=== PATIENT | female | born 1950 | race Caucasian/White ===

== ENCOUNTER → 2024-07-10 15:50 | Outpatient (REF) | payer OTHER, SELFPAY | LOC: WDC 15:50 | PROVIDERS: ATTENDING PHYSICIAN Family Medicine | DX: Z12.31 Encounter for screening mammogram for malignant neoplasm of breast (principal) | CPT/HCPCS: 77063; 77067 ==

== ENCOUNTER 2024-08-04 06:47 | Day surgery (SDC) | payer OTHER, SELFPAY ==
[2024-07-31 07:32] VITALS: BMI 34.7
[2024-07-31 08:50] LABS: Hematocrit 37.5 % (37.0-47.0); Hemoglobin 12.6 g/dL (12.0-16.0); Mean Corp Hgb Conc. 33.6 g/dL (33.0-37.0); Mean Corpuscular Hgb 31.5 pg (27.0-31.0); Mean Corpuscular Volume 93.8 fL (81.0-99.0); Mean Platelet Volume 10.1 fL (7.4-10.4); Platelet Count 211 10^3/uL (130-400); Red Cell Dist. Width 12.5 % (11.5-14.5); White Blood Cell Count 6.3 10^3/uL (4.8-10.8)
[2024-07-31 09:23] LABS: Blood Urea Nitrogen 31 mg/dl (7-17); Carbon Dioxide 26 mmol/L (22-30); Chloride 106 mmol/L (98-107); Estimated Creatinine Clearance 66 ml/min; Glucose 105 mg/dl (70-99); Potassium 4.6 mmol/L (3.5-5.1); Sodium 143 mmol/L (135-145); eGFR > 60.00
[2024-08-04] VITALS (7 sets, daily range): BP systolic 122–195; BP diastolic 65–96; BMI 34.7
[2024-08-04] MEDS: CYSVIEW KIT 100 MG INTRAVES (13:00)
[2024-08-04] MEDS: TYLENOL 1000 MG PO (13:12)
--- NOTE | 2024-08-04 15:38 | W.SUR.PREOP ---
Pre-Operative Surgical Note
-
I have examined this patient prior to the performance of the scheduled procedure.
The patient's condition is unchanged from the time of the current History and
Physical and the patient is able to undergo the scheduled procedure.
Cysview administered in SDS.
To OR for blue light cysto + bladder biopsy + fulguration
Preop sheet completed in SDS.
Surgical consent signed on chart.
D/w patient and daughter.
== END 2024-08-04 17:46 | disposition home or self-care (01) ==
LOC: SDS 06:47
PROVIDERS: ATTENDING PHYSICIAN Surgery; FAMILY PHYSICIAN Family Medicine; REFERRING PHYSICIAN Obstetrics & Gynecology
DX: N32.9 Bladder disorder, unspecified (principal)
CPT/HCPCS: 52224; C9738; 88307; 36415; 80048; 85027; 88341; 88342; 93005; A9589

== ENCOUNTER → 2024-08-28 11:53 | Outpatient (REF) | payer OTHER, SELFPAY | LOC: DHSLP 11:53 | PROVIDERS: ATTENDING PHYSICIAN Internal Medicine Critical Care Medicine; FAMILY PHYSICIAN Family Medicine | DX: G47.33 Obstructive sleep apnea (adult) (pediatric) (principal) | CPT/HCPCS: 95800 ==

== ENCOUNTER → 2025-02-07 15:17 | Outpatient (REF) | payer OTHER, SELFPAY | LOC: RAD 15:17 | PROVIDERS: ATTENDING PHYSICIAN Family Medicine | DX: I65.22 Occlusion and stenosis of left carotid artery (principal) | CPT/HCPCS: 93880 ==

== ENCOUNTER 2025-02-15 20:29 | Inpatient (IN) | payer OTHER, SELFPAY ==
[2025-02-15] VITALS (7 sets, daily range): BP systolic 117–210; BP diastolic 66–123; PULSE 88; BMI 35.1; BMI 34.2
[2025-02-15 16:13] LABS: % Basophils 0.4 % (0-2); % Eosinophils 1.1 % (0-6); % Immature Granulocytes 0.5 % (0-0.5); % Lymphocytes 9.6 % (20.5-51.1); % Monocytes 7.3 % (1.7-9.3); % Neutrophils 81.1 % (42.2-75.2); Absolute Basophils 0.1 10^3/uL (0-0.2); Absolute Eosinophils 0.1 10^3/uL (0-0.7); Absolute Immature Granulocytes 0.1 10^3/uL (0-0.05); Absolute Lymphocytes 1.2 10^3/uL (1.2-3.4); Absolute Monocytes 0.9 10^3/uL (0.1-0.6); Absolute Neutrophils 9.9 10^3/uL (1.4-6.5); Hemoglobin 13.3 g/dL (12.0-16.0); Mean Corpuscular Hgb 31.2 pg (27.0-31.0); Mean Corpuscular Volume 89.2 fL (81.0-99.0); Mean Platelet Volume 9.4 fL (7.4-10.4); Nucleated Red Blood Cells % 0 %; Platelet Count 234 10^3/uL (130-400); Red Blood Cell Count 4.26 10^6/uL (4.20-5.40); Red Cell Dist. Width 13.2 % (11.5-14.5); White Blood Cell Count 12.2 10^3/uL (4.8-10.8)
[2025-02-15 16:31] LABS: ALT (SGPT) 27 U/L (0-35); AST (SGOT) 29 U/L (14-36); Albumin 4.6 g/dl (3.5-5.0); Alkaline Phosphatase 82 U/L (38-126); Blood Urea Nitrogen 18 mg/dl (7-17); Calcium 9.6 mg/dl (8.4-10.2); Carbon Dioxide 24 mmol/L (22-30); Chloride 104 mmol/L (98-107); Glucose 108 mg/dl (70-99); Potassium 3.5 mmol/L (3.5-5.1); Sodium 139 mmol/L (135-145); Total Bilirubin 1.5 mg/dl (0.2-1.3); Total Protein 7.4 g/dl (6.3-8.2); eGFR > 60.00
[2025-02-15 16:43] LABS: Troponin I < 0.012 ng/ml
[2025-02-15 16:44] LABS: Lipase 58 U/L (23-300)
[2025-02-15] MEDS: ZOFRAN 4 MG IV (17:43)
[2025-02-15] MEDS: MORPHINE SULFATE 4 MG IV (17:43)
[2025-02-15] MEDS: NSS 1000 IV (17:44)
[2025-02-15 18:06] LABS: Lactic Acid 1.4 mmol/L (0.7-2.0)
--- NOTE | 2025-02-15 19:14 | ED.GENMED ---
History of Present Illness
General
Chief Complaint: Abdominal Pain
Source: patient and family
Time Seen by Provider: 02/15/25 17:23
History of Present Illness
History of Present Illness:
This is 74-year-old female presents with acute severe upper abdominal pain. Patient states starting earlier this morning. She woke up not feeling quite right but the pain progressed over time and now the pain is severe. The pain is in her upper
abdomen across the upper abdomen and low bit her back. She denies fevers. No sick contacts. No diarrhea. No melena. No hematochezia. No chest pain. No shortness of breath. Does still have her gallbladder. Daughter states that her pain is
severe and she is typically tolerant of pain
Past History
Past History
ED Past Medical History: HTN, Hypercholesterolemia and Other (Cataracts, melanoma, carotid artery disease)
Phy Exam
Physical Exam
Physical Exam:
CONSTITUTIONAL Patient alert and oriented to person, place and time. Moderate pain distress. Vital signs reviewed.
HEAD atraumatic, normocephalic.
EYES eyelids normal to inspection, Extraocular muscles intact, Conjunctiva normal, Sclera normal.
NECK normal range of motion, Trachea midline, no jugular venous distention.
RESPIRATORY CHEST No respiratory distress noted, Chest expansion equal, Bilateral breath sounds clear.
CARDIOVASCULAR regular rate and rhythm, Heart sounds normal.
ABDOMEN mild distention, moderate to severe tenderness in the epigastric and right upper quadrant region.
BACK normal inspection, no obvious deformities
UPPER EXTREMITY range of motion normal, Motor strength normal, no cyanosis, no edema.
LOWER EXTREMITY range of motion normal, Motor strength normal, no cyanosis, no edema.
NEURO Speech normal, No focal motor deficits, Wilber coma scale 15, Memory normal, Cranial Nerves intact to screening exam.
SKIN skin warm, dry, and normal in color.
Course
Orders/Labs/Results
Orders:
Orders
02/15/25 15:49
Electrocardiogram (*1) Urgent
Reason for Study: Hypertension, Benign
EKG- Treatment ONCE
02/15/25 16:06
Complete Blood Count/With Diff Urgent
Comprehensive Metabolic Panel Urgent
Lipase Urgent
Troponin I Urgent
02/15/25 17:34
0.9% Sodium Chloride 1000 ml [Nss] 1,000 ml IV BOLUS
Morphine Sulfate 4 mg IV NOW STA
Ondansetron Injectable [Zofran] 4 mg IV NOW STA
02/15/25 17:47
Lactic Acid Urgent
02/15/25 18:13
CT Abd/pelvis W Iv Cont Stat
Comment:
Reason For Exam: severe abd pain
02/15/25 19:12
Ampicillin/Sulbactam 3 G [Unasyn] 3 gm 0.9% Sodium Chloride 100 ml [Nss] 100 ml IV NOW
Abnormal Lab Results
02/15/25
16:06
WBC 12.2 H 10^3/uL
(4.8-10.8)
MCH 31.2 H pg
(27.0-31.0)
Abs Immat Gran (auto) 0.1 H 10^3/uL
(0-0.05)
Absolute Neuts (auto) 9.9 H 10^3/uL
(1.4-6.5)
Absolute Monos (auto) 0.9 H 10^3/uL
(0.1-0.6)
Neutrophils % 81.1 H %
(42.2-75.2)
Lymphocytes % 9.6 L %
(20.5-51.1)
BUN 18 H mg/dl
(7-17)
Glucose 108 H mg/dl
(70-99)
Total Bilirubin 1.5 H mg/dl
(0.2-1.3)
02/15/25 16:06
02/15/25 16:06
Vital Signs
Initial and Last Documented VS:
Initial Vital Signs
Temp Pulse Resp BP Pulse Ox
99.0 F 83 20 210/123 100
02/15/25 15:43 02/15/25 15:43 02/15/25 15:43 02/15/25 15:43 02/15/25 15:43
Last Documented Vital Signs
Temp Pulse Resp BP Pulse Ox
99.0 F 75 23 153/66 94
02/15/25 15:43 02/15/25 19:00 02/15/25 19:00 02/15/25 19:00 02/15/25 19:00
MDM/Problems Addressed
Differential Diagnosis Includes:
AAA, pancreatitis, cholelithiasis, cholecystitis, choledocholithiasis, enteritis, perforated viscus
MDM/Problems Addressed:
Acute cholecystitis, acute choledocholithiasis
*Radiology
Radiology exam reviewed: radiology read reviewed
*Pulse Oximetry
Patient hypoxic: no
*EKG
Interpreted by ED Provider?: Yes
Interpretation: normal
Rate: normal
Rhythm: sinus
Elmer: normal axis
Ischemia: non-specific ST changes
*Mohs Surgeon/General Dermatologist Interpretation
Rate: normal
Interpretation: normal
Rhythm: sinus
*Critical Care Note
Total Time (30-74mins, 75-104mins- exclusive of procedures): Not Applicable
Data Reviewed
Source: patient and family
Further Testing Considered But Not Given:
Considered ultrasound but concern for ruptured AAA and other diagnoses
Patient Management
Discussion with other providers: Hospitalist
Escalation/DeEscalation of care consider admission/obs:
74-year-old female presents with severe upper abdominal pain. Found to have cholelithiasis and choledocholithiasis. LFTs okay. Lipase okay. Admit
ED Attending Note
-
Portions of this chart may have been created with voice recognition software.� Occasional wrong word or��sound alike� substitutions may have occurred due to the inherent limitations of voice recognition software.
Discharge Plan
Departure
Patient Disposition: Admit
Date of Disposition: 02/15/25
Time of Disposition: 19:14
Admit to: Med/Surg
Presentation/result/management discussed w/ accepting MD/DO: Hospitalist
Discharge Problem:
Choledocholithiasis, Acute cholecystitis
Prescriptions:
No Action
aspirin 81 mg Tablet,Delayed Release (Dr/Ec)
81 mg PO DAILY
atorvastatin 20 mg Tablet
20 mg PO DAILY
levothyroxine 50 mcg Tablet
50 mcg PO DAILY
losartan 100 mg Tablet
100 mg PO DAILY
Botox 100 unit Recon Soln
1 unit IM [id number]
Patient Comments:
BLADDER INJECTION BY PHYSICIAN
Referrals:
Radha Soler DO [Family Provider] -
Interventions
Interventions:
*Risk Screen - Suicide Last Done: 02/15/25 15:43
*General Assessment Last Done: 02/15/25 15:43
*Neglect/Abuse Screening Last Done: 02/15/25 15:43
*ED- Fall Risk Assessment Last Done: 02/15/25 19:18
*ED COVID-19 Vaccine History Last Done: 02/15/25 19:18
QL-Acgzog-Wyxiybjguu Assessment Last Done: 02/15/25 18:37
Discharge Date and Time
Print Language: YAKUT
[2025-02-15] MEDS: TORADOL 15 MG IV (19:53)
[2025-02-15] MEDS: UNASYN IV (19:56)
--- NOTE | 2025-02-15 20:04 | HPS.HSE ---
Family Physician
-
Family Physician: Radha Soler
Chief Complaint
-
Abd Pain
History of Present Illness
Patient is a 74y F with PMH significant for carotid stenosis and hypothyroidism who presents to ED complaining of abdominal pain. Patient states that she felt woke this AM with mild nausea and upper abdominal discomfort. She ate nothing today
and had only sips of water and cale samina to drink. Patient states that her symptoms gradually progressed throughout the day. She completed her work day around 3:30 PM and then presented to the ED for further evaluation.
She denies any episodes of emesis. She denies any prior history of similar symptoms.
Patient notes that she has had some mild back discomfort for the past few days - she has been doing more outside work at home and attributed her symptoms to this.
She had some shaking chills here in the ED.
No other current complaints or concerns.
Medical History
Past Medical History
Past Medical History: Reports Other
Additional Past Medical History:
ASCVD / Carotid Stenosis
Hypertension
Hypothyroidism
Obesity
EVELINA
OAB
Past Surgical History: Reports Other
Additional Past Surgical History:
Bladder Biopsy (benign)
MARTIN
Cataracts
D&C x 2
D&E
Social History
Tobacco: Non-smoker
Alcohol: None
Drug: None
Family History
Family History: Other (Mother: CVA Father: CAD)
Allergies / Home Medications
Allergies reflects when Allergies were last updated in [employer].
Home Medications with original date entered in [employer]
Allergy/Medication List:
Allergies
Allergy/AdvReac Type Severity Reaction Status Date / Time
mirabegron [From Myrbetriq] Allergy migraines Verified 02/15/25 15:43
vibegron [From Gemtesa] Allergy throat Verified 02/15/25 15:43
irritation
Home Medications
aspirin 81 mg tablet,delayed release 81 mg PO DAILY 08/01/24
atorvastatin 20 mg tablet 20 mg PO DAILY 08/01/24
levothyroxine 50 mcg tablet 50 mcg PO DAILY 08/01/24
losartan 100 mg tablet 100 mg PO DAILY 08/01/24
acetaminophen 325 mg tablet (Tylenol) 650 mg PO Q6HPRN PRN mild pain 02/15/25
cartilage 40 mg-collagen II 10 mg-boron 5 mg-hyaluronate 3.3 mg tablet ([employer]) 2 tab PO DAILY 02/15/25
Review of Systems
-
History Source: Patient
A 12 point ROS was completed and negative except as noted: Yes
Constitutional: Reports Chills; Denies Fever or Fatigue
EENT: Denies Sore Throat
Respiratory: Denies Cough or Trouble Breathing
Cardiac: Denies Chest Pain or Palpitations
Abdomen/GI: Reports Abdominal Pain and Nausea; Denies Vomiting, Diarrhea, Bloody Stools or Black Stools
: Denies Dysuria, Frequency or Flank Pain
Musculoskeletal: Denies Joint Pain or Edema
Neurological: Denies Dizzy or Headache
Psych: Denies Depression or Anxiety
Physical Exam
Vital Signs
Vital Signs
Temp Pulse Resp BP Pulse Ox
99.0 F 83 21 153/66 99
02/15/25 15:43 02/15/25 19:30 02/15/25 19:30 02/15/25 19:00 02/15/25 19:30
Physical Exam
General: Other (74y F in mild distress due to abdominal pain.)
HEENT: Moist mucous membranes and PERRLA
Respiratory: Clear; No Wheezes, Rales or Rhonchi
Cardiac: S1/S2 and Regular Rhythm; No Murmur
GI: Soft, Non Distended, Normal Bowel Sounds and Other (Pos upper abdominal tenderness without guarding / rebound.)
Musculoskeletal: No Clubbing, No Cyanosis and No Edema
Neuro: AO x 3
Laboratory Results
-
02/15/25 16:06
02/15/25 16:06
Laboratory Results
Lactic Acid 1.4 mmol/L (0.7-2.0) 02/15/25 17:47
Total Bilirubin 1.5 mg/dl (0.2-1.3) H 02/15/25 16:06
AST 29 U/L (14-36) 02/15/25 16:06
ALT 27 U/L (0-35) 02/15/25 16:06
Alkaline Phosphatase 82 U/L (38-126) 02/15/25 16:06
Troponin I < 0.012 ng/ml 02/15/25 16:06
Lipase 58 U/L (23-300) 02/15/25 16:06
Impression/Plan
-
A/P: Patient is a 74y F with PMH significant for carotid stenosis, hypothyroidism and obesity who presents to ED complaining of abdominal pain.
Acute Cholecystitis
Choledocholithiasis
- Admit for further evaluation and treatment.
- CT scan in the ED shows 13mm distal CBD stone, gallbladder wall thickening and pericholecystic fluid.
- IV abx, NPO, IVF support.
- Pain control, antiemetics, etc.
- GI and Surgery evaluations for additional recommendations.
- Follow for any new / worsening symptoms.
ASCVD / Carotid Stenosis
- Stable. Patient has annual carotid sonograms done.
- Note that her US had appeared normal (< 50% stenosis) for several years now.
- Hold ASA acutely. Resume usual meds at discharge.
Benign Hypertension
- BP somewhat elevated in the ED - likely due to pain.
- Continue pain control as noted above.
- Continue usual losartan dose.
- Adjust meds as needed.
Hypothyroidism
- Stable. Continue current T4 replacement.
EVELINA on CPAP
- Stable. Continue nightly PAP therapy.
Obesity due to excess calories
- Affects all aspects of care.
- Encourage healthy diet and increased exercise with goal of weight loss.
DVT Prophylaxis: SCDs
Code Status: Full
[2025-02-15] MEDS: LR 1000 IV (21:23)
--- NOTE | 2025-02-15 21:40 | PTCARENOTE ---
Pt arrived to [facility] at 2100 from the ED on a stretcher. Pt walked from stretcher to bed w/o incident. Both of pt daughters with pt at bedside. Admission questions answered. Bed locked and in lowest position. Call herrera within reach. Pt oriented to
room. IVF hung at 60ml/hr. Care ongoing.
[2025-02-16] VITALS (11 sets, daily range): BP systolic 122–166; BP diastolic 60–85; PULSE 88
[2025-02-16] MEDS: ZOSYN 50 IV ×3 (02:29→20:09)
[2025-02-16] MEDS: SYNTHROID 50 MCG PO (06:22)
--- NOTE | 2025-02-16 07:40 | CON.GS ---
Addendum entered and electronically signed by Fly Mcgill MD 02/16/25 10:18:
SCDs and lovenox added
Addendum entered and electronically signed by Fly Mcgill MD 02/16/25 10:16:
I saw and examined the patient.
The resident's note was reviewed and I agree with the note.
Comment: Feels better, perhaps the stone has passed. Minimal ttp to RUQ. Discussed options including waiting for MRI and possible ERCP (likely Wednesday) with recommendation for CCY after, vs lap CCY today with cholangiogram. She opted for the latter.
Risks, benefits, complications and alternative discussed in detail including but not limited to pain, bleeding, infection, need for ERCP post-op, injury to intra-abdominal structures, conversion to open and she verbalized understanding and agreed to
proceed. OCTOR for RAL CCY with cholang.
Original Note:
Consultation
-
Date/Time Consultation Requested: 02/15/2025, 21:03
Date/Time Consultation Performed: 02/16/2025 07:30
Requesting Provider: Dr. Ravi Doran
Performing Provider: Dr. Fly Mcgill
Reason for Consultation: Acute Cholecystitis, Choledocholithiasis
Medical History
-
Chief Complaint: Abdominal pain, Acute Cholecystitis, Choledocholithiasis
History of Present Illness:
74-year-old female with past medical history of carotid artery stenosis, hypertension, hypothyroidism, EVELINA on CPAP, obesity, melanoma status post resection, total hysterectomy due to postmenopausal bleeding (patient does not recall underlying
etiology of bleeding) presented to the ED with abdominal pain. She woke up on 02/15/2025 with abdominal pain in the right upper quadrant that persistently got worse. The pain was consistent and severe in the right upper quadrant. It radiated to
the left side of her abdomen and states she has some lower back pain however that has been going on for the past few days. She had a normal dinner the night before, not particularly fatty and the day of she did not eat anything due to the severe
abdominal pain except for sips of water and some cale samina. She endorses nausea, but no vomiting. She endorses chills, but no fever. By the afternoon, her pain was severe enough that she came into the ED. Her last bowel movement was Wednesday,
however she typically runs a little bit constipated.
In the ED, blood pressure 210/123, afebrile, other vital stable, WBC 12.2 with left shift, bilirubin 1.5, lactic acid 1.4 lipase 58, creatinine 0.6. Abdominal pelvic CT revealed choledocholithiasis 3 mm stone in the distal common bile duct with
biliary duct dilation 13 mm. There is also mild gallbladder wall thickening suspicious for acute cholecystitis.
Patient received 1 L of fluid, ketorolac 15, morphine 4, Zofran, 1 dose of Unasyn. She was admitted on fluids and antibiotics switched to Zosyn.
Past Medical History
Past Medical History: Other (Carotid artery stenosis, ASCVD on aspirin, hypertension, hypothyroidism, EVELINA on CPAP, obesity, mild melanoma status post resection)
Past Surgical History: Other (Bladder biopsy (benign), MARTIN due to abnormal postmenopausal bleeding (over 10 years ago pt does not recall exact etiology), cataracts, D&C x 2, D&E, melanoma s/p resection on right arm)
Social History
Tobacco: Non-Smoker
Alcohol: None
Drug: None
Personal:
Living: Alone
Employment: Employed
Family History
Family History: Other (Mother CVA, father [place] and history of multiple clots, brother prostate cancer, Brother brain tumor)
Allergies / Home Medications
Allergy/AdvReac Type Severity Reaction Status Date / Time
mirabegron [From Myrbetriq] Allergy migraines Verified 02/15/25 15:43
vibegron [From Gemtesa] Allergy throat Verified 02/15/25 15:43
irritation
�Medication �Instructions �Recorded �Confirmed �Type
aspirin 81 mg tablet,delayed 81 mg PO DAILY 08/01/24 02/15/25 History
release
atorvastatin 20 mg tablet 20 mg PO DAILY 08/01/24 02/15/25 History
levothyroxine 50 mcg tablet 50 mcg PO DAILY 08/01/24 02/15/25 History
losartan 100 mg tablet 100 mg PO DAILY 08/01/24 02/15/25 History
acetaminophen 325 mg tablet 650 mg PO Q6HPRN PRN mild pain 02/15/25 02/15/25 History
(Tylenol)
cartilage 40 mg-collagen II 10 2 tab PO DAILY 02/15/25 02/15/25 History
mg-boron 5 mg-hyaluronate 3.3 mg
tablet ([email or web address])
Review of Systems
-
Constitutional: Fever and Chills
EENT: No Symptoms
Respiratory: No Symptoms
Cardiac: No Symptoms
Abdomen/GI: Abdominal Pain, Nausea, Vomiting (n) and Diarrhea (n)
Neurological: No Symptoms
A 10 point review of systems was completed, and was negative except as per HPI.
Physical Exam
Vital Signs
Temp Pulse Resp BP Pulse Ox
99.3 F 68 19 130/71 94
02/15/25 23:09 02/15/25 23:09 02/15/25 23:09 02/15/25 23:09 02/15/25 23:09
02/15/25 02/16/25 02/17/25
06:59 06:59 06:59
Actual Weight 84.85 kg
Body Mass Index (BMI) 34.2
Lab Results
WBC 12.2 10^3/uL (4.8-10.8) H 02/15/25 16:06
Hgb 13.3 g/dL (12.0-16.0) 02/15/25 16:06
Hct 38.0 % (37.0-47.0) 02/15/25 16:06
Plt Count 234 10^3/uL (130-400) 02/15/25 16:06
Abs Immat Gran (auto) 0.1 10^3/uL (0-0.05) H 02/15/25 16:06
Neutrophils % 81.1 % (42.2-75.2) H 02/15/25 16:06
Physical Exam
General: No Apparent Distress, Comfortable and Fever
Respiratory: Non Labored Respirations
Cardiac: Regular Rhythm
GI: Soft, Tender (Right upper quadrant) and Obese
Musculoskeletal: No Edema
Skin: Warm and Dry
Neuro: AO x 3
Psych: Calm
Assessment / Plan
-
74-year-old female presenting with choledocholithiasis and acute cholecystitis
Now febrile -BP initially elevated in the ED, however this morning within normal limits. Other vitals stable.
WBC 12.2 -> 8.3 with left shift, bilirubin 1.5 yesterday, CMP pending
Imaging consistent with choledocholithiasis with 3 mm stone in the distal common bile duct and dilation of the common bile duct 13 mm. Mild enlargement of gallbladder and some fat stranding suspicious for cholecystitis. Given clinical presentation
and story, acute cholecystitis likely.
As patient is feeling much better today than yesterday, patient may have already passed stone.
GI has also been consulted for ERCP, however mentioned that they may not be able to get to her until Wednesday as schedule is very packed. Discussed with patient and patient opted for surgical intervention today. Discussed robotic cholecystectomy
risks and recovery. Also discussed with daughter who is an ICU nurse at [employer] and patient and daughter are in agreement to get surgery today.
Plan:
-- NPO, IVF, Pain management
-- To OR today for robotic cholecystectomy and cholangiogram.
-- Continue Zosyn
-- DVT SCDs
--- NOTE | 2025-02-16 07:51 | W.PN.HOSP.TC ---
Today's Communication/Plan
-
Lap qiana and IOC (to look for any retained stones) with surgery team today.
Maintain NPO. Continue Zosyn.
Appreciate surgery team.
Assessment / Plan
Assessment / Plan
Physical Exam
General: Not in acute distress
HEENT: Moist mucous membranes
Respiratory: Clear to Auscultation Bilaterally
Cardiac: S1/S2 and Regular Rhythm
GI: Soft, Non Distended, Normal Bowel Sounds. RUQ tenderness.
Musculoskeletal: No Clubbing, No Cyanosis and No Edema
Neuro: AO x 3
Assessment/Plan
Patient is a 74y F with PMH significant for carotid stenosis, hypothyroidism and obesity who presents to ED complaining of abdominal pain.
Acute Cholecystitis
Choledocholithiasis
Fever -- 100.4 F -- on February 16, 2025
Leukocytosis
- CT scan in the ED showed 13mm distal CBD stone, gallbladder wall thickening and pericholecystic fluid.
- Possibly has passed a gallstone
- Continue Zosyn, NPO, IVF support.
- Pain control, antiemetics, etc.
- GI and Surgery evaluations for additional recommendations -- lap qiana and IOC (to look for any retained stones) with surgery team today
ASCVD / Carotid Stenosis
- Stable. Patient has annual carotid sonograms done.
- Note that her US had appeared normal (< 50% stenosis) for several years now.
- Hold ASA acutely. Resume usual meds at discharge.
Benign Hypertension
- BP somewhat elevated in the ED - likely due to pain -- now pain is better and blood pressure has improved
- Continue pain control as noted above.
- Continue usual losartan dose.
- Adjust meds as needed.
Hyperlipidemia?
Hypothyroidism
- Stable. Continue current T4 replacement.
EVELINA on CPAP
- Stable. Continue nightly PAP therapy.
Obesity due to excess calories
- Affects all aspects of care.
- Encourage healthy diet and increased exercise with goal of weight loss.
DVT Prophylaxis: SCDs. Lovenox.
Code Status: Full
Anticipated Discharge: 24 - 48 hours
Subjective/Interval History
-
Date of Service: February 16, 2025
Patient was seen and examined. She had a fever earlier. She reported overall her pain is better and that she is overall feeling better.
Objective Data
-
Labs:
Laboratory Results
02/16/25
07:49
WBC Pending
Hgb Pending
Hct Pending
Plt Count Pending
Sodium Pending
Potassium Pending
Chloride Pending
Carbon Dioxide Pending
BUN Pending
Creatinine Pending
Glucose Pending
Calcium Pending
Total Bilirubin Pending
AST Pending
ALT Pending
Alkaline Phosphatase Pending
Vital Signs:
Vital Signs
Temp Pulse Resp BP Pulse Ox
99.3 F 68 19 130/71 94
02/15/25 23:09 02/15/25 23:09 02/15/25 23:09 02/15/25 23:09 02/15/25 23:09
I&O
02/15/25 02/16/25 02/17/25
06:59 06:59 06:59
Intake Total 480 / 480
Balance 480 / 480
[2025-02-16] MEDS: COZAAR 100 MG PO (08:19)
[2025-02-16] MEDS: TYLENOL 650 MG PO (08:19)
--- NOTE | 2025-02-16 08:19 | CON.GI ---
Addendum entered and electronically signed by RIC Long 02/16/25 16:36:
Discussed with Dr. Mcgill. Patient s/p Lap CCY, +IOC with stone unable to pass. Contrast does enter duodenum. Saw patient in post op. Patient to be placed on clears. Continue Abx. Plan for ERCP Wednesday. Follow labs. Discussed with patient.
Addendum entered and electronically signed by Maribel Bo DO 02/16/25 10:48:
Patient seen and examined independently of RIC. I agree with her note with my additions below
Gamaliel is a 74-year-old female with history of hypertension hyperlipidemia, obesity and sleep apnea who comes in with acute onset upper abdominal pain nausea and chills currently with a temperature of 100.3, leukocytosis of 12,000. She has never had
any pain like this before. On imaging she has a dilated common bile duct at [address] scan with a very small 3 mm calculus in the distal common bile duct with mild gallbladder wall thickening suggestive of cholecystitis. Total bilirubin is
1.5, ALT 27, AST 29, alkaline phosphatase 82. Currently she is pain-free not requiring pain medications. No significant alcohol, lipase normal at 58, CT scan reviewed, discussed with Dr. Mcgill. Patient will go to the OR today and get an IOC to
look for any retained stones. Based on her clinical picture likely passed the stone. Will await IOC to determine if patient needs an ERCP. She is currently appropriately on antibiotics with Zosyn.
On physical exam she has some mild tenderness in the right upper quadrant otherwise benign exam.
Plan: Surgery to take patient to the OR for cholecystectomy with IOC and will call us if the IOC is positive for retained stone
Discussed with surgery
Original Note:
Consultation
-
Date/Time Consultation Requested: 02/15/25 043
Date/Time Consultation Performed: 02/16/25 3322
Requesting Provider: Dr. Doran
Performing Provider: Dr. Bo/RIC Sims
Reason for Consultation: cbd stone
Medical History
Chief Complaint / HPI
Chief Complaint: abd pain
History of Present Illness:
74-year-old female with past medical history of carotid stenosis, hypertension, hyperlipidemia, hypothyroidism and obstructive sleep apnea on CPAP presents to the emergency room with 1 day history of upper abdominal pain, nausea, chills.Had
temperature here, Tmax 100.3. Leukocytosis of 12.2. Total bilirubin 1.5 that was not fractionate, AST 29, ALT 27, alk phos 82. CT abdomen and pelvis with IV contrast that showed mild intrahepatic ductal dilatation with a distended, bile duct
measuring 13 mm. Distal CBD there is a 3 mm calculus. Mild gallbladder wall thickening with suggestive of cholecystitis. We are asked to evaluate for the same. The patient states that she was working she started having upper abdominal pain.
This first was dull then became sharper and sharper throughout the day. This then localized to the right upper quadrant with dull pain in her back. She had nausea without any vomiting. Chills. She came to the emergency room for further
evaluation. She has had unchanged pain. She does not smoke. She does not drink any alcohol. She takes aspirin 81 mg daily. No other NSAIDs. We are waiting current labs from this a.m. She was placed on Zosyn last evening. Surgical evaluation
pending.
Past Medical History
Past Medical History: Other (Carotid stenosis, hypertension, hyperlipidemia, hypothyroidism, obstructive sleep apnea)
Past Surgical History: Gynecological (Hysterectomy)
Social History
Tobacco: Non-Smoker
Alcohol: None
Drug: None
Employment: Employed
Family History
Family History: Other (No family history of gastrointestinal malignancy or IBD)
Allergies / Home Medications
Allergy/AdvReac Type Severity Reaction Status Date / Time
mirabegron [From Myrbetriq] Allergy migraines Verified 02/15/25 15:43
vibegron [From Gemtesa] Allergy throat Verified 02/15/25 15:43
irritation
�Medication �Instructions �Recorded
aspirin 81 mg tablet,delayed 81 mg PO DAILY 08/01/24
release
atorvastatin 20 mg tablet 20 mg PO DAILY 08/01/24
levothyroxine 50 mcg tablet 50 mcg PO DAILY 08/01/24
losartan 100 mg tablet 100 mg PO DAILY 08/01/24
acetaminophen 325 mg tablet 650 mg PO Q6HPRN PRN mild pain 02/15/25
(Tylenol)
cartilage 40 mg-collagen II 10 2 tab PO DAILY 02/15/25
mg-boron 5 mg-hyaluronate 3.3 mg
tablet ([email or web address])
Review of Systems
-
All other systems: A 12 pt ROS was Negative except as stated above in HPI
Vital Signs
Temp Pulse Resp BP Pulse Ox
100.4 F H 76 16 137/63 94
02/16/25 07:55 02/16/25 07:55 02/16/25 07:55 02/16/25 07:55 02/16/25 07:55
Physical Exam
Exam
General: No Apparent Distress
HEENT: Anicteric
Respiratory: Clear
Cardiac: Regular Rhythm
GI: Soft, Non Distended, Normal Bowel Sounds and Tender (Right upper quadrant discomfort on palpation)
Skin: Warm and Dry
Neuro: AO x 3
Psych: Calm
Results
WBC 12.2 10^3/uL (4.8-10.8) H 02/15/25 16:06
Hgb 13.3 g/dL (12.0-16.0) 02/15/25 16:06
Hct 38.0 % (37.0-47.0) 02/15/25 16:06
MCV 89.2 fL (81.0-99.0) 02/15/25 16:06
Plt Count 234 10^3/uL (130-400) 02/15/25 16:06
Absolute Neuts (auto) 9.9 10^3/uL (1.4-6.5) H 02/15/25 16:06
Sodium 139 mmol/L (135-145) 02/15/25 16:06
Potassium 3.5 mmol/L (3.5-5.1) 02/15/25 16:06
Chloride 104 mmol/L (98-107) 02/15/25 16:06
Carbon Dioxide 24 mmol/L (22-30) 02/15/25 16:06
BUN 18 mg/dl (7-17) H 02/15/25 16:06
Creatinine 0.6 mg/dL (0.6-1.0) 02/15/25 16:06
Calcium 9.6 mg/dl (8.4-10.2) 02/15/25 16:06
Total Bilirubin 1.5 mg/dl (0.2-1.3) H 02/15/25 16:06
AST 29 U/L (14-36) 02/15/25 16:06
ALT 27 U/L (0-35) 02/15/25 16:06
Alkaline Phosphatase 82 U/L (38-126) 02/15/25 16:06
Lipase 58 U/L (23-300) 02/15/25 16:06
Diagnostic Image Results:
CT abdomen pelvis with IV contrast:
Choledocholithiasis (possible distal 3 mm CBD stone) with biliary ductal dilatation. Findings suspicious for acute cholecystitis. Possible subtle gallstones.
Prior GI Procedures:
EGD: Never
Colonoscopy: Colonoscopy greater than 20 years ago at [facility]. Negative per patient report
Patient states that she had a negative Cologuard 1 year ago with PCP
Assessment / Plan
-
74-year-old female with past medical history of carotid stenosis, hypertension, hyperlipidemia, hypothyroidism and obstructive sleep apnea on CPAP presents to the emergency room with 1 day history of upper abdominal pain, nausea, chills.Had
temperature here, Tmax 100.3. Leukocytosis of 12.2. Total bilirubin 1.5 that was not fractionate, AST 29, ALT 27, alk phos 82. CT abdomen and pelvis with IV contrast that showed mild intrahepatic ductal dilatation with a distended, bile duct
measuring 13 mm. Distal CBD there is a 3 mm calculus. Mild gallbladder wall thickening with suggestive of cholecystitis. We are asked to evaluate for the same. Patient with persistent pain and fever. Awaiting labs this am.
Impression:
Cholecystitis with possible 3 mm distal CBD stone
Fever
Plan:
-Continue Abx
-Surgical consult pending
-Await am labs
-Keep NPO, IVF
-Trend CBC, LFTs
-Will discuss CT findings will Dr. Hernandes.
-Further recommendations to be forthcoming
-
-
Thank you for consultation and allowing me to participate in the patient's care. Please call the instructional technology coordinator GI physician during the after hours with any questions or concerns.
[2025-02-16 09:21] LABS: Hemoglobin 11.1 g/dL (12.0-16.0); Mean Corp Hgb Conc. 34.7 g/dL (33.0-37.0); Mean Corpuscular Hgb 31.3 pg (27.0-31.0); Mean Corpuscular Volume 90.1 fL (81.0-99.0); Mean Platelet Volume 10.2 fL (7.4-10.4); Platelet Count 171 10^3/uL (130-400); Red Blood Cell Count 3.55 10^6/uL (4.20-5.40); Red Cell Dist. Width 13.3 % (11.5-14.5); White Blood Cell Count 8.3 10^3/uL (4.8-10.8)
--- NOTE | 2025-02-16 10:52 | CM ---
Reviewed the chart notes and spoke with the patient at the bedside. Patient anticipates going to the OR at some point today. The patient resides alone in a two story home with two steps to enter. The patient reports only DME is a CPAP machine.
The patient reports no VN or SNF in the past. The patient confirmed [facility] choice [facility]. CM continues to be available to patient/family and is monitoring medical plan for needs at discharge.
Plan: Discharge to home when medically stable.
[2025-02-16 11:00] LABS: ALT (SGPT) 40 U/L (0-35); AST (SGOT) 44 U/L (14-36); Albumin 3.5 g/dl (3.5-5.0); Alkaline Phosphatase 75 U/L (38-126); Blood Urea Nitrogen 18 mg/dl (7-17); Calcium 8.5 mg/dl (8.4-10.2); Carbon Dioxide 24 mmol/L (22-30); Chloride 106 mmol/L (98-107); Direct Bilirubin 0.2 mg/dl (0.0-0.4); Estimated Creatinine Clearance 73 ml/min; Glucose 105 mg/dl (70-99); Potassium 3.7 mmol/L (3.5-5.1); Sodium 138 mmol/L (135-145); Total Bilirubin 2.9 mg/dl (0.2-1.3); Total Protein 5.9 g/dl (6.3-8.2); eGFR > 60.00
[2025-02-16] MEDS: LOVENOX 40 MG SC (11:10)
--- NOTE | 2025-02-16 15:57 | W.IMMPOSTOP ---
Surgical Immed Post Op Note
-
Primary Surgeon: Artem
Assisting: Valery CID
Pre-op Diagnosis: Acute calculous cholecystitis, choledocholithiasis
Post-op Diagnosis: Same
Procedure Performed: Robot assisted laparoscopic cholecystectomy with cholangiogram
Anesthesia Type: GETA
Specimen / Cultures: Gallbladder
Estimated Blood Loss: 30cc
Complications: None immediate
Operative Findings: Inflamed hydropic gallbladder with thickened wall, challenging to thread cholangiogram catheter but managed to backfill gallbladder in order to image the duct, duodenum did opacify, large stone in distal common duct identified.
Daughter Tonie updated
GI updated, will need ERCP
--- NOTE | 2025-02-16 15:59 | OR.RPT ---
Operative Report
Operative Report
Primary Surgeon: Artem
Assisting: Valery CID
Pre-op Diagnosis: Acute calculous cholecystitis, choledocholithiasis
Post-op Diagnosis: Same
Procedure Performed: Robot assisted laparoscopic cholecystectomy with cholangiogram
Anesthesia Type: GETA
Specimen / Cultures: Gallbladder
Estimated Blood Loss: 30cc
Complications: None immediate
Operative Findings: Inflamed hydropic gallbladder with thickened wall, challenging to thread cholangiogram catheter but managed to backfill gallbladder in order to image the duct, duodenum did opacify, large stone in distal common duct identified.
Date of Surgery:� 02/16/25
Indications: This 74F developed acute calculous cholecystitis. Lab work showed elevated liver enzymes. Imaging showed ductal dilation and choledocholithiasis with suspected 3mm stone in distal common duct. Laparoscopic cholecystectomy with
cholangiogram with robotic assist was elected.
Description of procedure: The patient was placed on the operating table in the supine position. General anesthesia was induced. A time-out was completed verifying correct patient, procedure, site, positioning, and special equipment prior to
beginning this procedure. An orogastric tube was placed. The abdomen was prepped and draped in the usual sterile fashion. A stab incision was made in left upper quadrant and the Veress needle was inserted. Proper position was confirmed by aspiration
and saline meniscus test. The abdomen was insufflated with carbon dioxide to a pressure of 12mmHg. The patient tolerated insufflation well.
A 8mm trocar was then inserted above the umbilicus. The laparoscope was inserted and the abdomen inspected. No injuries from initial trocar placement or Veress needle insertion were noted. Additional 8mm trocars were then inserted in the following
locations: two in the right lower quadrant and to the left of the umbilicus and just above. The abdomen was inspected and no abnormalities were found. The table was placed in the reverse Trendelenburg position with the right side up. The
gallbladder was notable inflamed with a thickened hydropic wall. The dome of the gallbladder was grasped with an atraumatic grasper and retracted over the dome of the liver. The infundibulum was then grasped with an atraumatic grasper and retracted
toward the right lower quadrant. This maneuver exposed Calot�s triangle. The thickened edematous peritoneum overlying the gallbladder infundibulum was then incised and the cystic duct and cystic artery identified and circumferentially dissected so
that a clear view of the liver was achieved through a window between the cystic duct an cystic artery. At this time, the only two structures going into the gallbladder were the cystic artery and cystic duct.
A tom was made in the cystic duct and a cholangiogram catheter threaded through the abdominal wall and into the cystic duct and secured with 3-0 silk suture. Only a few mm of the catheter was able to be threaded, the cystic duct was milked but no
stoned retrieved, ultimately the catheter was secured in fairly shallow position. A cholangiogram was obtained that showed backfill of the gallbladder, good flow of bile into the duodenum, limited opacification of biliary tree with a large filling
defect in the distal common duct. The catheter was removed.
The cystic duct was then doubly clipped and divided. The cystic artery was controlled with bipolar and divided. The gallbladder was then dissected from its peritoneal attachments by electrocautery. The gallbladder was removed using an endoscopic
retrieval bag placed through the umbilical port. The gallbladder was passed off the table as a specimen. The gallbladder fossa was irrigated with copious sterile saline. There was no evidence of bleeding from the gallbladder fossa or cystic artery
or leakage of the bile from the cystic duct stump. The umbilical trocar site was closed at the fascial level with 2-0 PDS. Secondary trocars were removed under direct vision and noted to be hemostatic. The abdomen was allowed to collapse. The skin
was closed with subcuticular sutures of 4-0 monocryl and topical skin adhesive. The orogastric tube was removed.
The patient tolerated the procedure well and was taken to the postanesthesia care unit in stable condition.
The assistance of Valery CID was required due to the complexity of the procedure. During the procedure she assisted with retraction, resection, and closure of the wound.
[2025-02-16] MEDS: ZOSYN IV (17:09)
[2025-02-16] MEDS: LR 1000 IV (18:03)
[2025-02-16] MEDS: TORADOL 15 MG IV (20:10)
[2025-02-17] MEDS: ZOSYN 50 IV ×3 (01:45→13:44)
[2025-02-17] MEDS: TORADOL 15 MG IV ×2 (02:16→09:37)
[2025-02-17 03:05] VITALS: BP 139/73
[2025-02-17] MEDS: SYNTHROID 50 MCG PO (05:21)
[2025-02-17 07:00] VITALS: BP 153/77
[2025-02-17 08:20] LABS: Hematocrit 32.1 % (37.0-47.0); Hemoglobin 11.2 g/dL (12.0-16.0); Mean Corp Hgb Conc. 34.9 g/dL (33.0-37.0); Mean Corpuscular Hgb 31.4 pg (27.0-31.0); Mean Corpuscular Volume 89.9 fL (81.0-99.0); Mean Platelet Volume 10.9 fL (7.4-10.4); Platelet Count 176 10^3/uL (130-400); Red Blood Cell Count 3.57 10^6/uL (4.20-5.40); Red Cell Dist. Width 13.1 % (11.5-14.5); White Blood Cell Count 9.9 10^3/uL (4.8-10.8)
[2025-02-17] MEDS: COZAAR 100 MG PO (09:37)
[2025-02-17 10:12] LABS: ALT (SGPT) 92 U/L (0-35); AST (SGOT) 97 U/L (14-36); Albumin 3.8 g/dl (3.5-5.0); Alkaline Phosphatase 80 U/L (38-126); Blood Urea Nitrogen 16 mg/dl (7-17); Calcium 9.2 mg/dl (8.4-10.2); Carbon Dioxide 26 mmol/L (22-30); Chloride 106 mmol/L (98-107); Direct Bilirubin 0.3 mg/dl (0.0-0.4); Estimated Creatinine Clearance 73 ml/min; Glucose 140 mg/dl (70-99); Potassium 3.9 mmol/L (3.5-5.1); Sodium 140 mmol/L (135-145); Total Bilirubin 3.1 mg/dl (0.2-1.3); Total Protein 6.7 g/dl (6.3-8.2); eGFR > 60.00
--- NOTE | 2025-02-17 11:03 | W.PN.HOSP.TC ---
Today's Communication/Plan
-
f/w GI recommendations
c/w IV Abx
Assessment / Plan
Assessment / Plan
Physical Exam
General: Not in acute distress
HEENT: Moist mucous membranes
Respiratory: Clear to Auscultation Bilaterally
Cardiac: S1/S2 and Regular Rhythm
GI: Soft, Non Distended, clean surgery sites.
Musculoskeletal: No Clubbing, No Cyanosis and No Edema
Neuro: AO x 3, she followed commands
Psych: calm
Assessment/Plan
Patient is a 74y F with PMH significant for carotid stenosis, hypothyroidism and obesity who presents to ED complaining of abdominal pain.
# Acute calculous cholecystitis, choledocholithiasis
Sepsis POA with leukocytosis, Fever -- 100.4 F -- on February 16, 2025. Normal lactic acid. Now resolved.
Leukocytosis
- CT scan in the ED showed 13mm distal CBD stone, gallbladder wall thickening and pericholecystic fluid.
- s/p Robot assisted laparoscopic cholecystectomy with cholangiogram by Dr Mcgill 02/16 revealing a large filling defect in the distal common duct, for ERCP by GI
- Continue Zosyn,
- Pain control, antiemetics, etc.
- GI and Surgery help appreciated
ASCVD / Carotid Stenosis
- Stable. Patient has annual carotid sonograms done.
- Note that her US had appeared normal (< 50% stenosis) for several years now.
- Hold ASA acutely. Resume usual meds at discharge.
Benign Hypertension
HTN urgency on 02/15, resolved, due to pain
- Continue pain control as noted above.
- Continue usual losartan dose.
Hyperlipidemia
Hypothyroidism
- Stable. Continue current T4 replacement.
EVELINA on CPAP
- Stable. Continue nightly PAP therapy.
Obesity due to excess calories
- Affects all aspects of care.
- Encourage healthy diet and increased exercise with goal of weight loss.
DVT Prophylaxis: SCDs. Lovenox. Hold Wednesday PM SQ Lovenox pending GI procedure on Wednesday
Code Status: Full
Total time spent to see the patient, examine the patient, review data and lab result, discuss treatment plan with the patient, nursing staff around 55 minutes
Anticipated Discharge: 24 - 48 hours
Subjective/Interval History
-
Date of Service: February 17, 2025
No abd pain
No nausea
No chest pain
Objective Data
-
Labs:
Laboratory Results
02/17/25 02/17/25
06:34 09:38
WBC 9.9
Hgb 11.2 L
Hct 32.1 L
Plt Count 176
Sodium Cancelled 140
Potassium Cancelled 3.9
Chloride Cancelled 106
Carbon Dioxide Cancelled 26
BUN Cancelled 16
Creatinine Cancelled 0.7
Glucose Cancelled 140 H
Calcium Cancelled 9.2
Total Bilirubin Cancelled 3.1 H
AST Cancelled 97 H
ALT Cancelled 92 H
Alkaline Phosphatase Cancelled 80
Vital Signs:
Vital Signs
Temp Pulse Resp BP Pulse Ox
97.9 F 67 16 139/73 97
02/17/25 07:00 02/17/25 07:00 02/17/25 07:00 02/17/25 09:37 02/17/25 10:00
I&O
02/16/25 02/17/25 02/18/25
06:59 06:59 06:59
Intake Total 480 / 480 1190 / 1190
Balance 480 / 480 1190 / 1190
[2025-02-17 11:36] VITALS: BP 136/60
--- NOTE | 2025-02-17 12:39 | W.PN.GS2 ---
Addendum entered and electronically signed by Fly Mcgill MD 02/17/25 14:22:
I saw and examined the patient.
The Materials Scientist's note was reviewed and I agree with the note.
Comment: Doing well post-op. Belly soft, approp ttp, incisions cdi. Discussed ductal stone that will require ERCP, timing per GI. OK for CLD in the meantime. Pls call with ?s
Original Note:
Today's Communication / Plan
-
Clears
Assessment / Plan
-
74 yo female presenting with ACC now POD #1 robotic cholecystectomy with IOC demonstrating choledocholithiasis
LFT's trending up
No Leukocytosis
--Gastroenterology following for ERCP
--Clear liquids until ERCP can be preformed then ADAT as per GI
--Analgesics as needed
--Trend labs
--ABX as per primary team
--Lovenox and SCDs for VTE ppx
Subjective Data
-
Date of Service: February 17, 2025
Patient seen and examined at bedside with Dr. Mcgill. Denies n/v. Incisional soreness, worse with movement.
Objective Data
-
Intake and Output
02/16/25 02/17/25 02/18/25
06:59 06:59 06:59
Intake Total 480 / 480 1190 / 1190
Balance 480 / 480 1190 / 1190
Intake:
Oral fluids 480 / 480 480 / 480
IV fluids (Total) 660 / 660
Normosol 300 / 300
IV piggybacks 50 / 50
Other:
Number of approximated LARGE 1
amounts of urine
How many times incontinent 1
MODERATE amount urine
Vital Signs
Temp Pulse Resp BP Pulse Ox
98.4 F 73 18 136/60 96
02/17/25 11:36 02/17/25 11:36 02/17/25 11:36 02/17/25 11:36 02/17/25 11:36
Lab Results
02/17/25 06:34
02/17/25 09:38
Calcium 9.2 mg/dl (8.4-10.2) 02/17/25 09:38
Total Bilirubin 3.1 mg/dl (0.2-1.3) H 02/17/25 09:38
Direct Bilirubin 0.3 mg/dl (0.0-0.4) 02/17/25 09:38
AST 97 U/L (14-36) H 02/17/25 09:38
ALT 92 U/L (0-35) H 02/17/25 09:38
Alkaline Phosphatase 80 U/L (38-126) 02/17/25 09:38
Total Protein 6.7 g/dl (6.3-8.2) 02/17/25 09:38
Albumin 3.8 g/dl (3.5-5.0) 02/17/25 09:38
Physical Exam
-
NAD
ABD soft, mild RUQ/incisional tenderness, ND
Mild jaundice
Incisions with intact glue, no erythema
[2025-02-17 15:00] VITALS: BP 137/66
--- NOTE | 2025-02-17 15:28 | PTCARENOTE ---
pt right side of face is just flushed down to her neck. No rash anywhere else, no difficult breathing. Non symptomatic or irritating. Just finished Zosyn, but has had at least 4-[address] Husain orders to HOLD Zosyn and Toradol and see if
resolves.
--- NOTE | 2025-02-17 15:44 | W.PN.GI.CBS2 ---
Today's Communication / Plan
-
-- full liquids, ERCP Wednesday, LFTs tomorrow
Assessment / Plan
-
74-year-old female with past medical history of carotid stenosis, hypertension, hyperlipidemia, hypothyroidism and obstructive sleep apnea on CPAP presents to the emergency room with 1 day history of upper abdominal pain, nausea, chills.Had
temperature here, Tmax 100.3. Leukocytosis of 12.2. Total bilirubin 1.5 that was not fractionate, AST 29, ALT 27, alk phos 82. CT abdomen and pelvis with IV contrast that showed mild intrahepatic ductal dilatation with a distended, bile duct
measuring 13 mm. Distal CBD there is a 3 mm calculus. Mild gallbladder wall thickening with suggestive of cholecystitis. We are asked to evaluate for the same. Patient with persistent pain and fever. Awaiting labs this am.
Impression:
Cholecystitis with possible 3 mm distal CBD stone
Fever
02/16/2025 cholecystectomy with positive IOC -contrast did flow into the duodenum and therefore not completely obstructed
02/17/2025: No leukocytosis, continuing Zosyn, stable total bilirubin 3.1, slight bump in ALT and AST. Normal alkaline phosphatase of 80
-- Check LFTs tomorrow, for liquid diet, ERCP scheduled for Wednesday
Subjective
Subjective
Date of Service: February 17, 2025
Patient appropriately sore at incision sites but no nausea vomiting and now passing flatus. Her daughter at bedside who is an ICU nurse was concerned about some facial flushing after her Zosyn dose
Objective
Data Reviewed
Laboratory Data:
Laboratory Results
02/17/25 06:34
02/17/25 09:38
Laboratory Results
Total Bilirubin 3.1 mg/dl (0.2-1.3) H 02/17/25 09:38
AST 97 U/L (14-36) H 02/17/25 09:38
ALT 92 U/L (0-35) H 02/17/25 09:38
Alkaline Phosphatase 80 U/L (38-126) 02/17/25 09:38
Lipase 58 U/L (23-300) 02/15/25 16:06
Vital Signs and I&O:
Vital Signs
Temp Pulse Resp BP Pulse Ox
98 F 75 20 137/66 100
02/17/25 15:00 02/17/25 15:00 02/17/25 15:00 02/17/25 15:00 02/17/25 15:00
I&O
02/16/25 02/17/25 02/18/25
06:59 06:59 06:59
Intake Total 480 / 480 1190 / 1190
Balance 480 / 480 1190 / 1190
Physical Exam
Physical Exam
HEENT: Anicteric (Mildly icteric)
Cardiology: Normal Sinus Rhythm
Pulmonary: Clear
GI: Soft and Tender (Appropriately tender. Fresh surgical incision sites)
Extremities: No Edema
Neuro: Non Focal
[2025-02-17] MEDS: LOVENOX 40 MG SC (17:35)
[2025-02-17 23:06] VITALS: BP 156/78
[2025-02-18] MEDS: SYNTHROID 50 MCG PO (06:06)
[2025-02-18] MEDS: TYLENOL 650 MG PO (06:09)
[2025-02-18 06:11] LABS: Hematocrit 29.2 % (37.0-47.0); Hemoglobin 10.2 g/dL (12.0-16.0); Mean Corp Hgb Conc. 34.9 g/dL (33.0-37.0); Mean Corpuscular Hgb 31.6 pg (27.0-31.0); Mean Corpuscular Volume 90.4 fL (81.0-99.0); Mean Platelet Volume 10.4 fL (7.4-10.4); Platelet Count 152 10^3/uL (130-400); Red Blood Cell Count 3.23 10^6/uL (4.20-5.40); Red Cell Dist. Width 13.4 % (11.5-14.5); White Blood Cell Count 9.4 10^3/uL (4.8-10.8)
[2025-02-18 06:48] LABS: ALT (SGPT) 96 U/L (0-35); AST (SGOT) 79 U/L (14-36); Albumin 3.1 g/dl (3.5-5.0); Alkaline Phosphatase 75 U/L (38-126); Blood Urea Nitrogen 15 mg/dl (7-17); Calcium 8.6 mg/dl (8.4-10.2); Carbon Dioxide 27 mmol/L (22-30); Chloride 106 mmol/L (98-107); Direct Bilirubin 0.2 mg/dl (0.0-0.4); Estimated Creatinine Clearance 73 ml/min; Glucose 113 mg/dl (70-99); Potassium 3.4 mmol/L (3.5-5.1); Sodium 139 mmol/L (135-145); Total Bilirubin 2.2 mg/dl (0.2-1.3); Total Protein 5.5 g/dl (6.3-8.2); eGFR > 60.00
[2025-02-18 07:15] VITALS: BP 141/71
--- NOTE | 2025-02-18 08:59 | W.PN.HOSP.TC ---
Addendum entered and electronically signed by Booker Husain MD 02/18/25 16:26:
Addendum
GI requested to c/w antibiotic, can do short course of Cefdinir.
End
Original Note:
Today's Communication/Plan
-
NPO past MN
Holding Lovenox tonight
Laxative
Replace K
Assessment / Plan
Assessment / Plan
Physical Exam
General: Not in acute distress
HEENT: Moist mucous membranes
Respiratory: Clear to Auscultation Bilaterally
Cardiac: S1/S2 and Regular Rhythm
GI: Soft, Non Distended, clean surgery sites.
Musculoskeletal: No Clubbing, No Cyanosis and No Edema
Neuro: AO x 3, she followed commands
Psych: calm
Assessment/Plan
Patient is a 74y F with PMH significant for carotid stenosis, hypothyroidism and obesity who presents to ED complaining of abdominal pain.
# Acute calculous cholecystitis, choledocholithiasis
Sepsis POA with leukocytosis, Fever -- 100.4 F -- on February 16, 2025. Normal lactic acid. Now resolved.
Leukocytosis
- CT scan in the ED showed 13mm distal CBD stone, gallbladder wall thickening and pericholecystic fluid.
- s/p Robot assisted laparoscopic cholecystectomy with cholangiogram by Dr Mcgill 02/16 revealing a large filling defect in the distal common duct, for ERCP by GI
- s/p IV Zosyn for 3 days.
- Pain control, antiemetics, etc.
- GI and Surgery help appreciated
# Reported skin color change around neck ( pink) yesterday
Doubt allergic reaction
She does no need more antibiotic.
Her skin looks normal and no evidence of rash
Hypokalemia
Replace
#ASCVD / Carotid Stenosis
- Stable. Patient has annual carotid sonograms done.
- Note that her US had appeared normal (< 50% stenosis) for several years now.
- Hold ASA acutely. Resume usual meds at discharge.
#Benign Hypertension
HTN urgency on 02/15, resolved, due to pain
- Continue pain control as noted above.
- Continue usual losartan dose.
# Constipation
Reports few days no BM
Tried MiraLAX, add daily dose with one time dose Dulcolax
#Hyperlipidemia
#Hypothyroidism
- Stable. Continue current T4 replacement.
# EVELINA on CPAP
- Stable. Continue nightly PAP therapy.
# Obesity due to excess calories
- Affects all aspects of care.
- Encourage healthy diet and increased exercise with goal of weight loss.
DVT Prophylaxis: SCDs. Lovenox. Hold Wednesday PM SQ Lovenox pending GI procedure on Wednesday
Code Status: Full
Total time spent to see the patient, examine the patient, review data and lab result, discuss treatment plan with the patient, GI doctor, nursing staff around 55 minutes
Anticipated Discharge: 24 - 48 hours
Subjective/Interval History
-
Date of Service: February 18, 2025
No abdominal pain
No nausea
no skin rash or itching
Objective Data
-
Labs:
Laboratory Results
02/18/25
04:33
WBC 9.4
Hgb 10.2 L
Hct 29.2 L
Plt Count 152
Sodium 139
Potassium 3.4 L
Chloride 106
Carbon Dioxide 27
BUN 15
Creatinine 0.7
Glucose 113 H
Calcium 8.6
Total Bilirubin 2.2 H
AST 79 H
ALT 96 H
Alkaline Phosphatase 75
Vital Signs:
Vital Signs
Temp Pulse Resp BP Pulse Ox
98.6 F 68 16 141/71 95
02/18/25 07:15 02/18/25 07:15 02/18/25 07:15 02/18/25 07:15 02/18/25 07:15
I&O
02/17/25 02/18/25 02/19/25
06:59 06:59 06:59
Intake Total 1190 / 1190 300 / 300
Balance 1190 / 1190 300 / 300
[2025-02-18] MEDS: COZAAR 100 MG PO (09:18)
[2025-02-18] MEDS: MIRALAX 17 GRAMS PO (09:19)
[2025-02-18] MEDS: DULCOLAX 10 MG PO (09:19)
[2025-02-18] MEDS: KCL 20 MEQ PO (11:47)
--- NOTE | 2025-02-18 12:06 | W.PN.GI.CBS2 ---
Today's Communication / Plan
-
-- Restart antibiotics, choice per primary team as there was a questionable reaction to Zosyn but doubt significant allergy
Assessment / Plan
-
74-year-old female with past medical history of carotid stenosis, hypertension, hyperlipidemia, hypothyroidism and obstructive sleep apnea on CPAP presents to the emergency room with 1 day history of upper abdominal pain, nausea, chills.Had
temperature here, Tmax 100.3. Leukocytosis of 12.2. Total bilirubin 1.5 that was not fractionate, AST 29, ALT 27, alk phos 82. CT abdomen and pelvis with IV contrast that showed mild intrahepatic ductal dilatation with a distended, bile duct
measuring 13 mm. Distal CBD there is a 3 mm calculus. Mild gallbladder wall thickening with suggestive of cholecystitis. We are asked to evaluate for the same. Patient with persistent pain and fever. Awaiting labs this am.
Impression:
Cholecystitis with possible 3 mm distal CBD stone
Fever
02/16/2025 cholecystectomy with positive IOC -contrast did flow into the duodenum and therefore not completely obstructed
02/17/2025: No leukocytosis, continuing Zosyn, stable total bilirubin 3.1, slight bump in ALT and AST. Normal alkaline phosphatase of 80
-- Check LFTs tomorrow, for liquid diet, ERCP scheduled for Wednesday
02/18/2025 -patient needs to be back on antibiotics in the setting of choledocholithiasis
N.p.o. after midnight
Subjective
Subjective
Date of Service: February 18, 2025
Tolerating full liquids with no significant pain
Objective
Data Reviewed
Laboratory Data:
Laboratory Results
02/18/25 04:33
02/18/25 04:33
Laboratory Results
Total Bilirubin 2.2 mg/dl (0.2-1.3) H 02/18/25 04:33
AST 79 U/L (14-36) H 02/18/25 04:33
ALT 96 U/L (0-35) H 02/18/25 04:33
Alkaline Phosphatase 75 U/L (38-126) 02/18/25 04:33
Lipase 58 U/L (23-300) 02/15/25 16:06
Vital Signs and I&O:
Vital Signs
Temp Pulse Resp BP Pulse Ox
98.6 F 68 16 141/71 95
02/18/25 07:15 02/18/25 07:15 02/18/25 07:15 02/18/25 07:15 02/18/25 07:15
I&O
02/17/25 02/18/25 02/19/25
06:59 06:59 06:59
Intake Total 1190 / 1190 300 / 300
Balance 1190 / 1190 300 / 300
Physical Exam
Physical Exam
HEENT: Anicteric (Mildly icteric)
GI: Soft and Tender (Appropriately tender postprocedure)
Extremities: No Edema
Neuro: Non Focal
--- NOTE | 2025-02-18 14:06 | CM ---
Patient seen at bedside in [address] [place] [address]. Patient consult for VN at discharge. Patient confused as to why the doctor was recommending VN. Patient plan to discuss with physician, however at this time she does not believe that she will need VN. Patient
states that she will have procedure tomorrow and that she plans to go home with family support. CM will continue to follow for discharge planning needs.
Plan; home with no needs vs home with VN; pending patient choice
[2025-02-18 15:30] VITALS: BP 130/69
[2025-02-18] MEDS: OMNICEF 300 MG PO (20:11)
[2025-02-18 23:15] VITALS: BP 154/68
[2025-02-19] VITALS (10 sets, daily range): BP systolic 147–189; BP diastolic 75–93
[2025-02-19] MEDS: SYNTHROID 50 MCG PO (05:26)
--- NOTE | 2025-02-19 05:51 | PTCARENOTE ---
pt assessed for pain, pt verbalized ''I have a high tolerance for pain and do not need any pain meds''. Pt declines her CPAP.
[2025-02-19 06:53] LABS: Hematocrit 31.3 % (37.0-47.0); Hemoglobin 10.4 g/dL (12.0-16.0); Mean Corp Hgb Conc. 33.2 g/dL (33.0-37.0); Mean Corpuscular Hgb 31.2 pg (27.0-31.0); Mean Platelet Volume 10.3 fL (7.4-10.4); Platelet Count 172 10^3/uL (130-400); Red Blood Cell Count 3.33 10^6/uL (4.20-5.40); Red Cell Dist. Width 13.6 % (11.5-14.5); White Blood Cell Count 7.7 10^3/uL (4.8-10.8)
[2025-02-19 07:03] LABS: ALT (SGPT) 85 U/L (0-35); AST (SGOT) 46 U/L (14-36); Albumin 3.4 g/dl (3.5-5.0); Alkaline Phosphatase 82 U/L (38-126); Direct Bilirubin 0.2 mg/dl (0.0-0.4); Total Bilirubin 1.9 mg/dl (0.2-1.3); Total Protein 5.8 g/dl (6.3-8.2)
[2025-02-19] MEDS: MIRALAX PO (07:10)
[2025-02-19] MEDS: COZAAR 100 MG PO (07:11)
[2025-02-19] MEDS: OMNICEF 300 MG PO ×2 (07:11→19:31)
--- NOTE | 2025-02-19 08:00 | W.PN.HOSP.TC ---
Today's Communication/Plan
-
ERCP today
Assessment / Plan
Assessment / Plan
Physical Exam
General: Not in acute distress
HEENT: Moist mucous membranes
Respiratory: Clear to Auscultation Bilaterally
Cardiac: S1/S2 and Regular Rhythm
GI: Soft, Non Distended, clean surgery sites.
Musculoskeletal: No Clubbing, No Cyanosis and No Edema
Neuro: AO x 3, she followed commands
Psych: calm
Assessment/Plan
Patient is a 74y F with PMH significant for carotid stenosis, hypothyroidism and obesity who presents to ED complaining of abdominal pain.
# Acute calculous cholecystitis, choledocholithiasis
Sepsis POA with leukocytosis, Fever -- 100.4 F -- on February 16, 2025. Normal lactic acid. Now resolved.
Leukocytosis
- CT scan in the ED showed 13mm distal CBD stone, gallbladder wall thickening and pericholecystic fluid.
- s/p Robot assisted laparoscopic cholecystectomy with cholangiogram by Dr Mcgill 02/16 revealing a large filling defect in the distal common duct
- s/p IV Zosyn for 3 days.
- Pain control, antiemetics, etc.
- GI and Surgery help appreciated
- ERCP today with choledochlolithiasis
# Reported skin color change around neck ( pink) yesterday
Doubt allergic reaction
She does no need more antibiotic -- Zosyn was recently stopped
Her skin looks normal and no evidence of rash
#Hypokalemia
-Resolved
-Replace as needed
#ASCVD / Carotid Stenosis
- Stable. Patient has annual carotid sonograms done.
- Note that her US had appeared normal (< 50% stenosis) for several years now.
- Hold ASA acutely. Resume usual meds at discharge.
#Benign Hypertension
HTN urgency on 02/15, resolved, due to pain
- Continue pain control as noted above.
- Continue usual losartan dose.
# Constipation
Reports few days no BM
Tried MiraLAX, add daily dose with one time dose Dulcolax
#Hyperlipidemia
#Hypothyroidism
- Stable. Continue current T4 replacement.
# EVELINA on CPAP
- Stable. Continue nightly PAP therapy.
# Obesity due to excess calories
- Affects all aspects of care.
- Encourage healthy diet and increased exercise with goal of weight loss.
DVT Prophylaxis: SCDs. Lovenox whtn okay to resume per Dr. Hernandes of GI.
Code Status: Full
Anticipated Discharge: Within 24 hours
Subjective/Interval History
-
Date of Service: February 19, 2025
Patient was seen and examined. She denied any new symptoms or complaints.
Objective Data
-
Labs:
Laboratory Results
02/19/25
05:39
WBC 7.7
Hgb 10.4 L
Hct 31.3 L
Plt Count 172
Total Bilirubin 1.9 H
AST 46 H
ALT 85 H
Alkaline Phosphatase 82
Vital Signs:
Vital Signs
Temp Pulse Resp BP Pulse Ox
99.8 F 74 20 147/79 92
02/18/25 23:15 02/19/25 07:11 02/18/25 23:15 02/19/25 07:11 02/18/25 23:15
I&O
02/18/25 02/19/25 02/20/25
06:59 06:59 06:59
Intake Total 300 / 300 1140 / 1140
Balance 300 / 300 1140 / 1140
[2025-02-19 08:34] LABS: Blood Urea Nitrogen 10 mg/dl (7-17); Calcium 8.7 mg/dl (8.4-10.2); Carbon Dioxide 27 mmol/L (22-30); Chloride 106 mmol/L (98-107); Estimated Creatinine Clearance 73 ml/min; Glucose 95 mg/dl (70-99); Sodium 141 mmol/L (135-145); eGFR > 60.00
--- NOTE | 2025-02-19 12:15 | CM ---
CM following re: discharge planning.
Reviewed pt's chart, met with pt.
Per chart review, pt for ERCP today.
Pt reports she resides alone in a two story home and pt is independent in all areas [employer]. has C-Pap machine. Pt stated she will not need any after care VN services.
D/C plan: home with no after care VN needs.
CM will follow with discharge plan updates as needed.
[2025-02-19] MEDS: DILAUDID 0.5 MG IV (16:21)
[2025-02-19] MEDS: ZOFRAN 4 MG IV (16:22)
[2025-02-19] MEDS: APRESOLINE 5 MG IV (16:24)
[2025-02-20 03:15] VITALS: BP 168/89
[2025-02-20] MEDS: SYNTHROID 50 MCG PO (05:04)
[2025-02-20] MEDS: APRESOLINE 5 MG IV (05:10)
[2025-02-20 07:09] VITALS: BP 125/67
[2025-02-20 07:10] LABS: Hemoglobin 11.4 g/dL (12.0-16.0); Mean Corp Hgb Conc. 35.6 g/dL (33.0-37.0); Mean Corpuscular Hgb 31.3 pg (27.0-31.0); Mean Corpuscular Volume 87.9 fL (81.0-99.0); Mean Platelet Volume 10.3 fL (7.4-10.4); Platelet Count 214 10^3/uL (130-400); Red Blood Cell Count 3.64 10^6/uL (4.20-5.40); Red Cell Dist. Width 12.8 % (11.5-14.5); White Blood Cell Count 9.5 10^3/uL (4.8-10.8)
[2025-02-20] MEDS: COZAAR 100 MG PO (07:45)
[2025-02-20] MEDS: MIRALAX PO ×2 (07:45→07:46)
[2025-02-20] MEDS: OMNICEF 300 MG PO (07:46)
[2025-02-20 10:14] LABS: ALT (SGPT) 435 U/L (0-35); AST (SGOT) 503 U/L (14-36); Albumin 3.5 g/dl (3.5-5.0); Alkaline Phosphatase 314 U/L (38-126); Blood Urea Nitrogen 15 mg/dl (7-17); Calcium 9.6 mg/dl (8.4-10.2); Carbon Dioxide 27 mmol/L (22-30); Chloride 104 mmol/L (98-107); Direct Bilirubin 1.5 mg/dl (0.0-0.4); Estimated Creatinine Clearance 86 ml/min; Glucose 156 mg/dl (70-99); Potassium 3.8 mmol/L (3.5-5.1); Sodium 140 mmol/L (135-145); Total Bilirubin 3.9 mg/dl (0.2-1.3); Total Protein 6.3 g/dl (6.3-8.2); eGFR > 60.00
--- NOTE | 2025-02-20 10:51 | CM ---
Reviewed the chart notes and spoke with the patient at the bedside. IMM reviewed. Patient anticipates being discharged to home with no additional needs. Patient's daughter will provide transportation on day of discharge. CM continues to be
available to patient/family and is monitoring medical plan for needs at discharge.
Plan: Discharge to home when medically stable. No needs anticipated.
[2025-02-20 11:08] VITALS: BP 168/85
--- NOTE | 2025-02-20 13:18 | W.PN.GI.CBS2 ---
Today's Communication / Plan
-
Low-fat diet
Repeat LFT in a.m.
Assessment / Plan
-
74-year-old female with past medical history of carotid stenosis, hypertension, hyperlipidemia, hypothyroidism and obstructive sleep apnea on CPAP presents to the emergency room with 1 day history of upper abdominal pain, nausea, chills.Had
temperature here, Tmax 100.3. Leukocytosis of 12.2. Total bilirubin 1.5 that was not fractionate, AST 29, ALT 27, alk phos 82. CT abdomen and pelvis with IV contrast that showed mild intrahepatic ductal dilatation with a distended, bile duct
measuring 13 mm. Distal CBD there is a 3 mm calculus. Mild gallbladder wall thickening with suggestive of cholecystitis. We are asked to evaluate for the same. Patient with persistent pain and fever. Awaiting labs this am.
Impression:
Cholecystitis with possible 3 mm distal CBD stone
Fever
02/16/2025 cholecystectomy with positive IOC -contrast did flow into the duodenum and therefore not completely obstructed
02/17/2025: No leukocytosis, continuing Zosyn, stable total bilirubin 3.1, slight bump in ALT and AST. Normal alkaline phosphatase of 80
-- Check LFTs tomorrow, for liquid diet, ERCP scheduled for Wednesday
ERCP with 02/19/2025
Impression: - The major papilla appeared to be flat.
- A filling defect consistent with a stone was seen on
the cholangiogram.
- The common bile duct was mildly dilated.
- Choledocholithiasis was found. Complete removal was
accomplished by biliary sphincterotomy and balloon
extraction.
plan
This AM labs showing AST 503/ALT 435/alkaline phosphatase 314/total bilirubin 3.9 . Likely papillary edema following ERCP. Patient is asymptomatic.
ok to advance to low-fat diet
discussed with Dr. Hernandes. Repeat labs tomorrow AM. If downtrending okay to DC home
Total Time Spent with Patient (in minutes): 35
Subjective
Subjective
Date of Service: February 20, 2025
Denies any abdominal pain/nausea/vomiting
Objective
Data Reviewed
Laboratory Data:
Laboratory Results
02/20/25 05:52
02/20/25 09:18
Laboratory Results
Total Bilirubin 3.9 mg/dl (0.2-1.3) H D 02/20/25 09:18
AST 503 U/L (14-36) H* 02/20/25 09:18
ALT 435 U/L (0-35) H 02/20/25 09:18
Alkaline Phosphatase 314 U/L (38-126) H 02/20/25 09:18
Lipase 58 U/L (23-300) 02/15/25 16:06
Vital Signs and I&O:
Vital Signs
Temp Pulse Resp BP Pulse Ox
98.5 F 79 17 168/85 97
02/20/25 11:08 02/20/25 11:08 02/20/25 11:08 02/20/25 11:08 02/20/25 11:08
I&O
02/19/25 02/20/25 02/21/25
06:59 06:59 06:59
Intake Total 1140 / 1140 1020 / 1020
Balance 1140 / 1140 1020 / 1020
Physical Exam
Physical Exam
GI: Soft, Non Distended and Non Tender
--- NOTE | 2025-02-20 13:27 | W.PN.HOSP.TC ---
Today's Communication/Plan
-
AST, ALT, Bili are higher
Advance diet
Recheck labs tomorrow
Discussed plan with GI
Assessment / Plan
Assessment / Plan
Physical Exam
General: Not in acute distress
HEENT: Moist mucous membranes
Respiratory: Clear to Auscultation Bilaterally
Cardiac: S1/S2 and Regular Rhythm
GI: Soft, Non Distended, clean surgery sites.
Musculoskeletal: No Clubbing, No Cyanosis and No Edema
Neuro: AO x 3, she followed commands
Psych: calm
Assessment/Plan
Patient is a 74y F with PMH significant for carotid stenosis, hypothyroidism and obesity who presents to ED complaining of abdominal pain.
# Acute calculous cholecystitis, choledocholithiasis
Sepsis POA with leukocytosis, Fever -- 100.4 F -- on February 16, 2025. Normal lactic acid. Now resolved.
Leukocytosis
- CT scan in the ED showed 13mm distal CBD stone, gallbladder wall thickening and pericholecystic fluid.
- s/p Robot assisted laparoscopic cholecystectomy with cholangiogram by Dr Mcgill 02/16 revealing a large filling defect in the distal common duct
- s/p IV Zosyn for 3 days.
- Pain control, antiemetics, etc.
- GI and Surgery help appreciated
- ERCP on 02/19/25 showed choledocholithiasis
- Today, bilirubin and transaminases have increased; I spoke with Dr. Hernandes of GI who recommended advancing patient diet today and recheck labs tomorrow
# Reported skin color change around neck ( pink) yesterday
Doubt allergic reaction
She does no need more antibiotic -- Zosyn was recently stopped
Her skin looks normal and no evidence of rash
#Hypokalemia
-Resolved
-Replace as needed
#ASCVD / Carotid Stenosis
- Stable. Patient has annual carotid sonograms done.
- Note that her US had appeared normal (< 50% stenosis) for several years now.
- Hold ASA acutely. Resume usual meds at discharge.
#Benign Hypertension
HTN urgency on 02/15, resolved, due to pain
- Continue pain control as noted above.
- Continue usual losartan dose.
# Constipation
Reports few days no BM
Tried MiraLAX, add daily dose with one time dose Dulcolax
#Hyperlipidemia
#Hypothyroidism
- Stable. Continue current T4 replacement.
# EVELINA on CPAP
- Stable. Continue nightly PAP therapy.
# Obesity due to excess calories
- Affects all aspects of care.
- Encourage healthy diet and increased exercise with goal of weight loss.
DVT Prophylaxis: SCDs. Lovenox whtn okay to resume per Dr. Hernandes of GI.
Code Status: Full
Anticipated Discharge: Within 24 hours
Subjective/Interval History
-
Date of Service: February 20, 2025
Patient was seen and examined. She denied any new symptoms or complaints.
Objective Data
-
Labs:
Laboratory Results
02/20/25 02/20/25
05:52 09:18
WBC 9.5
Hgb 11.4 L
Hct 32.0 L
Plt Count 214 D
Sodium Cancelled 140
Potassium Cancelled 3.8
Chloride Cancelled 104
Carbon Dioxide Cancelled 27
BUN Cancelled 15
Creatinine Cancelled 0.6
Glucose Cancelled 156 H
Calcium Cancelled 9.6
Total Bilirubin Cancelled 3.9 H D
AST Cancelled 503 H*
ALT Cancelled 435 H
Alkaline Phosphatase Cancelled 314 H
Vital Signs:
Vital Signs
Temp Pulse Resp BP Pulse Ox
98.5 F 79 17 168/85 97
02/20/25 11:08 02/20/25 11:08 02/20/25 11:08 02/20/25 11:08 02/20/25 11:08
I&O
02/19/25 02/20/25 02/21/25
06:59 06:59 06:59
Intake Total 1140 / 1140 1020 / 1020
Balance 1140 / 1140 1020 / 1020
[2025-02-20] MEDS: LOVENOX SC (14:13)
[2025-02-20 15:06] VITALS: BP 181/91
[2025-02-20] MEDS: BENADRYL 25 MG IV (20:09)
[2025-02-20] MEDS: REGLAN 10 MG IV (20:10)
--- NOTE | 2025-02-20 20:45 | PTCARENOTE ---
At change of shift, pt in bed c/o of 05/27 migraine pain that started this afternoon and has progressively has got worse. Pt VSS, reports hx of migraines but does not remember what has taken in past. Pt has elevated liver enzymes, reached out [facility] for
options for pain relief. provided ice pack and eye shades @ this time.
[2025-02-20 23:27] VITALS: BP 153/68
--- NOTE | 2025-02-20 23:49 | PTCARENOTE ---
Pt received benadryl and reglan for migraine, pt request her CPAP for tonight, she has not been wearing has chose to wear nasal canula. Pt has been sleeping in bed has reported her migraine pain has lessened since medication, CPAP on.
[2025-02-21] MEDS: SYNTHROID 50 MCG PO (06:16)
[2025-02-21 07:13] LABS: Hematocrit 31.8 % (37.0-47.0); Hemoglobin 11.2 g/dL (12.0-16.0); Mean Corp Hgb Conc. 35.2 g/dL (33.0-37.0); Mean Corpuscular Hgb 31.9 pg (27.0-31.0); Mean Corpuscular Volume 90.6 fL (81.0-99.0); Mean Platelet Volume 10.2 fL (7.4-10.4); Platelet Count 218 10^3/uL (130-400); Red Blood Cell Count 3.51 10^6/uL (4.20-5.40); Red Cell Dist. Width 13.9 % (11.5-14.5); White Blood Cell Count 15.7 10^3/uL (4.8-10.8)
[2025-02-21 07:29] LABS: ALT (SGPT) 272 U/L (0-35); AST (SGOT) 120 U/L (14-36); Albumin 3.1 g/dl (3.5-5.0); Alkaline Phosphatase 221 U/L (38-126); Blood Urea Nitrogen 24 mg/dl (7-17); Calcium 9.4 mg/dl (8.4-10.2); Carbon Dioxide 26 mmol/L (22-30); Chloride 105 mmol/L (98-107); Direct Bilirubin 0.3 mg/dl (0.0-0.4); Estimated Creatinine Clearance 51 ml/min; Glucose 117 mg/dl (70-99); Potassium 3.4 mmol/L (3.5-5.1); Sodium 138 mmol/L (135-145); Total Bilirubin 1.7 mg/dl (0.2-1.3); Total Protein 5.7 g/dl (6.3-8.2); eGFR 59.86
[2025-02-21 07:30] VITALS: BP 157/81
[2025-02-21] MEDS: MIRALAX PO (08:16)
[2025-02-21] MEDS: COZAAR 100 MG PO (08:18)
--- NOTE | 2025-02-21 09:42 | W.PN.HOSP.TC ---
Addendum entered and electronically signed by Kwabena Whitt MD 02/21/25 13:58:
Also, this morning, I spoke with patient's daughter, who is a nurse, over the phone (patient put patient's daughter on patient's cellphone speaker phone), and I answered all of her questions and concerns to satisfaction.
Original Note:
Today's Communication/Plan
-
Discharge today
Assessment / Plan
Assessment / Plan
Physical Exam
General: Not in acute distress
HEENT: Moist mucous membranes
Respiratory: Clear to Auscultation Bilaterally
Cardiac: S1/S2 and Regular Rhythm
GI: Soft, Non Distended, clean surgery sites.
Musculoskeletal: No Clubbing, No Cyanosis and No Edema
Neuro: AO x 3, she followed commands
Psych: calm
Assessment/Plan
Patient is a 74y F with PMH significant for carotid stenosis, hypothyroidism and obesity who presents to ED complaining of abdominal pain.
# Acute calculous cholecystitis, choledocholithiasis
# Bile duct calculous with Bile duct Obstruction
# Concern for Sepsis Present on Arrival with leukocytosis, last Fever -- 100.4 F -- on February 16, 2025
Leukocytosis
- CT scan in the ED showed 13mm distal CBD stone, gallbladder wall thickening and pericholecystic fluid.
- s/p Robot assisted laparoscopic cholecystectomy with cholangiogram by Dr Mcgill 02/16 revealing a large filling defect in the distal common duct
- s/p IV Zosyn for 3 days.
- Pain control, antiemetics, etc.
- GI and Surgery help appreciated
- ERCP on 02/19/25 showed choledocholithiasis
- Spoke with director client on-call Dr. Smith who agreed that patient does not need any antibiotics on discharge
# Reported skin color change around neck ( pink) yesterday
Doubt allergic reaction
She does no need more antibiotic -- Zosyn was recently stopped
Her skin looks normal and no evidence of rash
#Hypokalemia
-Resolved
-Replace as needed
-Potassium supplementation on discharge
#ASCVD / Carotid Stenosis
- Stable. Patient has annual carotid sonograms done.
- Note that her US had appeared normal (< 50% stenosis) for several years now.
- Resume usual meds at discharge.
#Benign Hypertension
HTN urgency on 02/15, resolved, due to pain
- Continue pain control as noted above.
- Continue usual losartan dose.
# Constipation
-Bowel regimen after discharge
#Hyperlipidemia
#Hypothyroidism
- Stable. Continue current T4 replacement.
# EVELINA on CPAP
- Stable. Continue nightly PAP therapy.
# Obesity due to excess calories
- Affects all aspects of care.
- Encourage healthy diet and increased exercise with goal of weight loss.
DVT Prophylaxis: SCDs. Lovenox.
Code Status: Full Code.
More than 30 minutes spent in discharge including
Final examination of the patient
Summarizing hospital stay
Instructions for continuing care to all relevant caregivers
Preparation of discharge records, prescriptions, and referral forms
Total time spent (in minutes): 36
Anticipated Discharge: Today
Subjective/Interval History
-
Date of Service: February 21, 2025
Patient was seen and examined. She reported no symptoms or complaints, and reported tolerating her diet well.
Objective Data
-
Labs:
Laboratory Results
02/21/25
05:45
WBC 15.7 H
Hgb 11.2 L
Hct 31.8 L
Plt Count 218
Sodium 138
Potassium 3.4 L
Chloride 105
Carbon Dioxide 26
BUN 24 H
Creatinine 1.0
Glucose 117 H
Calcium 9.4
Total Bilirubin 1.7 H D
AST 120 H
ALT 272 H
Alkaline Phosphatase 221 H
Vital Signs:
Vital Signs
Temp Pulse Resp BP Pulse Ox
98.3 F 74 17 157/81 93
02/21/25 07:30 02/21/25 07:30 02/21/25 07:30 02/21/25 08:18 02/21/25 07:30
I&O
02/20/25 02/21/25 02/22/25
06:59 06:59 06:59
Intake Total 2960 / 2960
Balance 2960 / 2960
--- NOTE | 2025-02-21 10:12 | PN.CDI ---
CDI
- -
CDI:
Physician Documentation Request
Admit Date: 02/15/25 20:29
Dear Doctor Peri,
Please review the following and provide your response in the progress notes.
Documentation states that the patient was admitted with abdominal pain.
Clinical Indicators:
Pt admitted with Sepsis 2/2 Acute calculous cholecystitis, choledocholithiasis
Documented GI progress note 02/18,' Cholecystitis with possible 3 mm distal CBD stone... cholecystectomy with positive IOC -contrast did flow into the duodenum and therefore not completely obstructed.... Anicteric (Mildly icteric)....'
ERCP,' ...The lower third of the main bile duct contained filling defect(s) thought to be a stone. The common bile duct was mildly dilated and diffusely dilated. The largest diameter was 8 mm. A 0.035 inch x 260 cm straight Dreamwire was passed
into the biliary tree. A 3 mm biliary sphincterotomy ...'
Progress note 02/20 GI, ' This AM labs showing AST 503/ALT 435/alkaline phosphatase 314/total bilirubin 3.9 ...'
Please provide a diagnosis for the above findings:
Bile duct calculous with Bile duct Obstruction
Bile duct calculous without Obstruction
Other ( please specify)
Use of terms such as suspected, likely, concern for, or probable (associated with a specific diagnosis that is being evaluated, monitored, or treated as if it exists) are acceptable and can be coded in the inpatient setting, when documented at the
time of discharge.
Thank you,
Vilma Moore RN
CDI Specialist
[employer] [employer]
Please use your independent medical judgment in providing your response.
[2025-02-21] MEDS: KCL 40 MEQ PO (11:37)
--- NOTE | 2025-02-21 12:31 | CM ---
CM following re: discharge planning.
Reviewed pt's chart, met with pt.
According to pt possible will be ready for discharge today. pt us aware, expressed her agreement and she stated she will call her daughter who will transport home. Pt stated she will not need after care VN services, described herself as
independent in all areas [employer].
IMM reviewed, placed on chart, pt has a copy.
D/c plan: home with no after care VN needs. Daughter to transport.
--- NOTE | 2025-02-21 14:08 | W.DCSUMMARY ---
Discharge Summary
Discharge Data
Date of Admission: 02/15/25
Date of Discharge: 02/21/25
Total time spent discharging patient (in min): 36
-
Pending Results: Yes
Additional Pending Results:
Discuss hospital surgical biopsy results with your outpatient providers
Hospital Course
74 y/o female with past medical history significant for carotid stenosis and hypothyroidism who presented complaining of abdominal pain. Patient was found to have acute cholecystitis and choledocholithiasis and started on antibiotics. Surgery and
gastroenterology were consulted. On February 16, 2025, patient had robot assisted laparoscopic cholecystectomy with cholangiogram (showing stone) given his acute calculous cholecystitis and choledocholithiasis. Patient had an ERCP on February 19, 2025 which
showed choledocholithiasis -- complete removal of the stone was accomplished by biliary sphincterotomy and balloon extraction. Patient's AST/ALT/ALP/Bilirubin overall seemed to worsen the next day, likely due to papillary edema following ERCP. Diet
was advanced which patient tolerated well, next day her AST/ALT/ALP/Bilirubin improved and she was stable for discharge.
Discharge Plan
-
Patient Disposition: Home (Routine Discharge)
Discharge Diagnosis/Procedures: Cholecystitis with choledocholithiasis status post robotic cholecystectomy with IOC and ERCP
Acute cholecystitis
Choledocholithiasis with biliary ductal dilatation status post complete removal with biliary sphincterotomy and balloon extraction, and sweeping of biliary tree
Condition: Good
Diet: As tolerated, Low Sodium and 2 Gram Sodium
Additional Diets: If you notice loose stools after surgery, switch to a low fat diet
Activity: No strenuous activity
Additional Activity: Do not lift over 20lbs for the next 2-3 weeks
Driving Restrictions: No driving for 24 hours
Bathing Restrictions: OK to Shower
Blood Work: CBC (with differential), CMP and Magnesium with your primary care provider's office in 2 to 3 days
Wound Care: Allow the glue to flake off your incisions on its own over the next 2-3 weeks. Avoid soaking or swimming in tubs/pools or scrubbing or picking off the glue during this time.
Activity Restrictions/Additional Instructions:
Call your surgeon if you have worsening pain, nausea with vomiting or a fever >100.5
Referrals:
Reza Hernandes MD [Active] - in one to two weeks (Hospital ERCP follow-up)
Fly Mcgill MD [Active] - in two to four weeks
Radha Soler DO [Family Provider] - in less than 1 week
Additional Discharge Medication Instructions: Potassium is a new medication since you had mildly low potassium in the hospital -- you really need to have your potassium levels checked with your primary care provider's office in 2 to 3 days to see if
you should continue the potassium tablets which have been prescribed.
Avoid Benadryl while taking oral potassium above.
Polyethylene glycol is a new medication to help you have bowel movements.
Atorvastatin is on hold since you had elevated AST and ALT while in the hospital -- you will need to talk with your outpatient primary care provider if and when you can resume Atorvastatin.
Prescriptions:
New
potassium chloride 10 mEq capsule, extended release
10 meq PO DAILY Qty: 10 0RF
polyethylene glycol 3350 17 gram Powder In Packet
17 g PO DAILY Qty: 30 0RF
amlodipine 2.5 mg tablet
2.5 mg PO DAILY Qty: 30 1RF
Continued
aspirin 81 mg Tablet,Delayed Release (Dr/Ec)
81 mg PO DAILY
levothyroxine 50 mcg Tablet
50 mcg PO DAILY
losartan 100 mg Tablet
100 mg PO DAILY
SimPrints 40-10-5-3.3 mg Tablet
2 tab PO DAILY
Held
atorvastatin 20 mg Tablet
20 mg PO DAILY
Hold Instructions: Resume on 03/14/25. Discuss with your primary care provider if and when you should resume this medication.
Discontinued
acetaminophen [Tylenol] 325 mg Tablet
650 mg PO Q6HPRN PRN (Reason: mild pain)
Discharge Orders:
Discharge Patient (As Directed); Ordered 02/21/25
Ordered By: Kwabena Whitt
Discharge Date and Time
Discharge Date/Time: 02/21/25 16:05
Print Language: LATVIAN
[2025-02-21 15:12] VITALS: BP 167/86
--- NOTE | 2025-02-21 16:14 | PTCARENOTE ---
Patient blood pressure 167/[address] Whitt made aware. DC meds updated. Patient and daughter aware.
== END 2025-02-21 16:05 | disposition home or self-care (01) | DRG 854 ==
LOC: 2 SOUTH 20:29
PROVIDERS: Emergency Medicine; Internal Medicine; Internal Medicine Gastroenterology; Nurse Practitioner; Registered Nurse; ADMITTING PHYSICIAN Hospitalist; ATTENDING PHYSICIAN Hospitalist; CONSULT PHYSICIAN Internal Medicine; EMERGENCY PHYSICIAN Emergency Medicine; FAMILY PHYSICIAN Family Medicine; OTHER PHYSICIAN Surgery
PROC: 5A09357 Assistance with Respiratory Ventilation, Less than 24 Consecutive Hours, Continuous Positive Airway Pressure (ICD-10-PCS; 2025-02-15)
PROC: 8E0W4CZ Robotic Assisted Procedure of Trunk Region, Percutaneous Endoscopic Approach (ICD-10-PCS; 2025-02-16)
PROC: 0FT44ZZ Resection of Gallbladder, Percutaneous Endoscopic Approach (ICD-10-PCS; 2025-02-16)
PROC: BF532Z0 Other Imaging of Gallbladder and Bile Ducts using Fluorescing Agent, Intraoperative (ICD-10-PCS; 2025-02-16)
PROC: 0F778ZZ Dilation of Common Hepatic Duct, Via Natural or Artificial Opening Endoscopic (ICD-10-PCS; 2025-02-19)
PROC: 0FC98ZZ Extirpation of Matter from Common Bile Duct, Via Natural or Artificial Opening Endoscopic (ICD-10-PCS; 2025-02-19)
DX: A41.9 Sepsis, unspecified organism (principal); K80.63 Calculus of gallbladder and bile duct with acute cholecystitis with obstruction; E03.9 Hypothyroidism, unspecified; E66.09 Other obesity due to excess calories; Z68.34 Body mass index [BMI] 34.0-34.9, adult; G47.33 Obstructive sleep apnea (adult) (pediatric); K59.00 Constipation, unspecified; E78.00 Pure hypercholesterolemia, unspecified; I25.10 Atherosclerotic heart disease of native coronary artery without angina pectoris; Z82.49 Family history of ischemic heart disease and other diseases of the circulatory system; I10 Essential (primary) hypertension; E87.6 Hypokalemia; Z79.890 Hormone replacement therapy; Z79.82 Long term (current) use of aspirin; Z79.899 Other long term (current) drug therapy; Z85.820 Personal history of malignant melanoma of skin; G43.909 Migraine, unspecified, not intractable, without status migrainosus; Z80.42 Family history of malignant neoplasm of prostate; Z82.3 Family history of stroke; Z90.710 Acquired absence of both cervix and uterus
CPT/HCPCS: 88304; 74177; 74300; 74330; 76000; 80053; 82248; 83605; 83690; 83735; 84484; 85025; 85027; 87040; 93005; 94660; 96361; 96374; 96375; 99285; A4300; C1769; Q9967

== ENCOUNTER → 2025-04-17 15:39 | Outpatient (REF) | payer OTHER, SELFPAY | LOC: HWRAD 15:39 | PROVIDERS: ATTENDING PHYSICIAN Podiatrist Foot & Ankle Surgery; FAMILY PHYSICIAN Family Medicine | DX: M20.22 Hallux rigidus, left foot (principal) | CPT/HCPCS: 73630 ==

== ENCOUNTER → 2025-05-18 08:10 | Outpatient (REF) | payer OTHER, SELFPAY | LOC: RAD 08:10 | PROVIDERS: ATTENDING PHYSICIAN Family Medicine | DX: Z78.0 Asymptomatic menopausal state (principal) | CPT/HCPCS: 77080 ==

== ENCOUNTER → 2025-07-11 16:00 | Outpatient (REF) | payer OTHER, SELFPAY | LOC: WDC 16:00 | PROVIDERS: ATTENDING PHYSICIAN Family Medicine | DX: Z12.31 Encounter for screening mammogram for malignant neoplasm of breast (principal) | CPT/HCPCS: 77063; 77067 ==